=== PATIENT | male | born 1930 | race Caucasian/White ===

== ENCOUNTER 2019-11-07 13:34 | Inpatient (IN) | payer OTHER ==
[~2019-11-07] VITALS: Ht 167.6 cm; Wt 68.3 kg
[2019-11-07 13:34] VITALS: BP 121/76
[2019-11-07 14:11] LABS: BE(vivo) 0 mmol/L (-2 to +3); HCO3 24.5 mmol/L (22.0-26.0); PCO2 39.6 mmHg (35.0-45.0); PO2 69.4 mmHg (80.0-100.0); sO2 94.1 % (92.0-98.0)
[2019-11-07 14:12] LABS: ABSOLUTE NEUTROPHILS 6.9 thou/uL (1.4-8.2); BASOPHILS 0.1 % (0.0-2.0); EOSINOPHILS 0.1 % (0.0-3.0); HEMATOCRIT 27.1 % (42.0-52.0); HEMOGLOBIN 8.5 gm/dL (14.0-18.0); LYMPHOCYTES 3.1 % (24.0-44.0); MCH 33.6 pg (26.0-34.0); MCHC 31.3 g/dL (28.0-37.0); MCV 107.2 fL (80.0-100.0); MONOCYTES 2.9 % (1.0-8.0); POLYS 93.8 % (36.0-66.0); RBC 2.53 mil/uL (4.50-6.00); WBC 7.4 thou/uL (4.0-11.0)
[2019-11-07 14:28] LABS: ALBUMIN 1.4 g/dL (3.4-5.0); CALCIUM 6.1 mg/dL (8.5-10.1); DIRECT BILIRUBIN 0.1 mg/dL (<0.1-0.2); TOTAL BILIRUBIN 0.3 mg/dL (0.2-1.0); TOTAL PROTEIN 5.4 g/dL (6.4-8.2)
[2019-11-07 14:37] LABS: POTASSIUM 2.8 mmol/L (3.5-5.1)
[2019-11-07 14:39] LABS: PLATELET COUNT 131 thou/uL (150-400)
[2019-11-07] MEDS ORDERED: DIVALPROEX SOD250 M1 PO (15:06)
[2019-11-07 17:07] LABS: URINE BILIRUBIN NEGATIVE (Negative); URINE BLOOD 2+ (Negative); URINE CLARITY CLEAR; URINE COLOR YELLOW; URINE GLUCOSE-RANDOM* NEGATIVE (Negative); URINE KETONES NEGATIVE (Negative); URINE LEUKOCYTES-REFLEX NEGATIVE (Negative); URINE NITRITE-REFLEX NEGATIVE (Negative); URINE PROTEIN (DIPSTICK) 1+ (Negative); URINE SPECIFIC GRAVITY 1.025 (1.005-1.035); URINE UROBILINOGEN 0.2 E.U./dl (0.2-1.0)
[2019-11-07 17:17] LABS: CASTS None Seen /LPF (None Seen); CRYSTALS None Seen /LPF (None Seen); SQUAMOUS None Seen /LPF (0-3)
[2019-11-07 17:18] LABS: BACTERIA-REFLEX 1-9 Few /HPF (None Seen); URINE RBC 0-2 Rare /HPF (0-2); URINE WBC-REFLEX None Seen /HPF (0-5)
[2019-11-07 18:33] VITALS: BP 87/36
[2019-11-07 20:15] VITALS: BP 107/74
[2019-11-08] VITALS (8 sets, daily range): BP systolic 100–132; BP diastolic 65–95
[2019-11-08] MEDS ORDERED: SIMVASTATIN40 MG PO (00:52)
[2019-11-08] MEDS ORDERED: NAMENDA 10 MG T10 MG PO (00:53)
[2019-11-08] MEDS ORDERED: BUSPIRONE HCL10 MG PO (00:53)
[2019-11-08] MEDS ORDERED: PROSCAR 5MG TABL5 M1 PO (00:53)
[2019-11-08] MEDS ORDERED: FLOMAX0.4 MG PO (00:54)
[2019-11-08] MEDS ORDERED: TRAZODONE HCL50 MG PO (00:54)
--- NOTE | 2019-11-08 03:34 | NUR ---
Admission history and assessments completed. However unable to chart admission assessments on [employer], IT issues which IT is aware off. Careplan initiated. 11/06 COVID swab not done in ED, collected and sent to lab at 2030, results pending. New onset of Afib with RVR, currently on Amiodarone drip per protocol. Keeping SBP's >100. Rhythm remains in Afib rate 120's. High fall risks, fall precautions in place.
--- NOTE | 2019-11-08 04:00 | NUR ---
Patient increasingly more awake and getting restless. Has taken off NRB mask multiple times, attempting to pull on elias catheter and managed to disconnect ivtubing. Orders received for non violent restraints and bilateral soft wrists restraints will be applied. Amiodarone drip infusing per protocol at 16.77 ml/hr.Rhythm remains Afib rate 120's. Maintaining SBP> or equal to 100. Critical labs reported to Chiqui Martinez NP, will review for further orders.
[2019-11-08 04:12] LABS: ABSOLUTE NEUTROPHILS 8.2 thou/uL (1.4-8.2); HEMATOCRIT 41.4 % (42.0-52.0); LYMPHOCYTES 5.2 % (24.0-44.0); MCH 33.1 pg (26.0-34.0); MCHC 31.5 g/dL (28.0-37.0); MCV 105.2 fL (80.0-100.0); MONOCYTES 3.8 % (1.0-8.0); PLATELET COUNT 180 thou/uL (150-400); RBC 3.94 mil/uL (4.50-6.00); RDW 15.5 % (10.5-14.5)
[2019-11-08 04:17] LABS: ALBUMIN 1.9 g/dL (3.4-5.0); CALCIUM 7.6 mg/dL (8.5-10.1); CREATININE 2.6 mg/dL (0.7-1.3); MAGNESIUM 2.8 mg/dL (1.8-2.4); TOTAL BILIRUBIN 0.6 mg/dL (0.2-1.0); TOTAL PROTEIN 6.4 g/dL (6.4-8.2)
--- NOTE | 2019-11-08 05:51 | NUR ---
Bilateral soft wrist restraints on. Attempted to call 1st emergency contact Graciela Greene spouse, number is no longer in service. Left message with 2nd contact Aldo King [phone].
--- NOTE | 2019-11-08 08:12 | EKG ---
[facility] [place] [address] ELECTROCARDIOGRAM REPORT Name: GURINDER DUNCAN Room #: 353-P ADM IN M.R.#: [id number] Admission: 11/07/19 Attend Phys: Loc Mcdonough Discharge: Date of : [birth year] Report #: [id number] THIS REPORT FOR: cc: Claus Booth James D. DO Lundgren, Craig H. MD [facility] ~ THIS REPORT FOR: //name// [facility] ED Test Date: 2019-11-07 Test Time: 13:47:49 Pat Name: GURINDER DUNCAN Department: Room: [facility] Gender: M Client Application Support Engineer: SAPPHIRE : [id number] Requested By: Ariella Andujar Order Number: [id number] MD: Thomas Watkins Measurements Intervals Kimball Rate: 139 P: DC: QRS: 33 QRSD: 132 T: -53 QT: 283 QTc: 431 Interpretive Statements Atrial flutter with predominant 2:1 AV block Ventricular premature complex Right bundle branch block No previous ECG available for comparison Electronically Signed On 11-08-2019 8:12:41 CDT by Thomas Watkins [email or web address] <ELECTRONICALLY SIGNED> By: Thomas Watkins MD, [facility] 11/08/19 0812 1347 [id number] Thomas Watkins MD, [facility] /EPI
[2019-11-08 09:02] LABS: HCO3 23.8 mmol/L (22.0-26.0); PCO2 49.5 mmHg (35.0-45.0); PO2 108.3 mmHg (80.0-100.0); sO2 97.4 % (92.0-98.0)
--- NOTE | 2019-11-08 16:55 | NUR ---
INITIAL ASSESSMENT: SW reviewed chart and spoke with nursing and attending physician. Pt was admitted from [facility] due to respiratory failure. Pt on 15L NRB mask. Pt is in Enhanced Isolation to r/o COVID-19. Test is pending. Discussed with nursing. Pt is comfort care at this time. SW provided update to [place] post-acute liaison. DAGO is following to assist as needed.
--- NOTE | 2019-11-08 18:15 | NUR ---
RECEIVED PT'S CARE AROUND 0720; PT. ON BED; RESTING WITH EYES CLOSED; RESPONSIVE TO PAIN; AM MEDICATIONS GIVEN; SHALLOW RESPIRATION NOTICED; AFIB WITH TACHYCARDIA ON THE MONITOR; PER PHYSICIAN TRYING TO CONTACT SON OR WITH NO ANSWER; DURING THE MORNING "CONIE" A PT'S FRIEND CONTACT THE NURSE & ST. PT'S HAS NOT ACCESS TO PHONE AT THE [facility]; REQUESTED PT'S SON PHONE; FRIEND DID NOT HAVE IT AT THE [facility]; CALLED SON; ABLE TO CONTACT HIM; NOTIFIED PHYSICIAN WANTS TO TALK ABOUT PT'S HELTH & POC; PT'S SON ST. [facility] BEING OUT OF TOWN AND NOT HAVING A GOOD FRONT COUNTER CLERK, "BUT WILL KEEP CELL PHONE CLOSE TO HIM" FOR WHENEVER PHYSICIAN CALLS; DR. JACKSON NOTIFIED; RECEIVED PHONE CALL AFTER NOON FROM PT'S , , CONTACTED ; UPDATE ABOUT PT'S HEALTH ST. UNDERSTANDING; AROUND 1439 PHYSICIAN INFORMED DIP GUIDER STOVES PT'S HECTOR, SON, REQUESTED COMFORT CARE FOR PT; ORDERS ON PLACED; D/C FLUIDS & AMIODARONE; PRN MORPHINE GIVEN; PT. RESTLESS; PHYSICIAN NOTIFIED; ORDERS ON PLACED; PRN LORAZEPAM GIVEN; MONITORING; ASSESSMENT CHARGED; FOLLOWING POC; WILL PASS ON REPORT;
--- NOTE | 2019-11-08 23:53 | NUR ---
WHEN FIRST SEEING THE PT, PT WAS LYING IN A SUPINE POSITION WITH THE NON-REBREATHER MASK ON, PT APPEARED TO BE GRIMACING SO PAIN MEDICATION WAS GIVEN TO PROMOTE COMFORT. PT ALSO LOOKED AGITATED AND SQUIRMISH SO ATIVAN WAS PROVIDED WELL. PT IS NONVERBAL/NONRESPONSIVE. NO CONCERNS ARE MADE AND PT COMFORT IS PRIORITY AT THIS TIME. PT IS STILL ATTACHED TO THE MONITOR AT THIS TIME SINCE PT REMAINS IN ISOLATION. COVID PCR WAS ORDERED. WILL CONTINUE TO MONITOR FOR CHANGE IN STATUS
[2019-11-09 06:07] LABS: ABSOLUTE NEUTROPHILS 11.8 thou/uL (1.4-8.2); EOSINOPHILS 0.1 % (0.0-3.0); HEMATOCRIT 40.3 % (42.0-52.0); HEMOGLOBIN 12.5 gm/dL (14.0-18.0); LYMPHOCYTES 4.3 % (24.0-44.0); MCH 32.9 pg (26.0-34.0); MCV 105.9 fL (80.0-100.0); MONOCYTES 2.7 % (1.0-8.0); PLATELET COUNT 169 thou/uL (150-400); POLYS 92.9 % (36.0-66.0); RBC 3.81 mil/uL (4.50-6.00); RDW 16.8 % (10.5-14.5); WBC 12.7 thou/uL (4.0-11.0)
[2019-11-09 06:22] LABS: ALBUMIN 1.8 g/dL (3.4-5.0); CALCIUM 8.2 mg/dL (8.5-10.1); MAGNESIUM 2.8 mg/dL (1.8-2.4); POTASSIUM 4.5 mmol/L (3.5-5.1); TOTAL BILIRUBIN 0.4 mg/dL (0.2-1.0); TOTAL PROTEIN 7.3 g/dL (6.4-8.2)
[2019-11-09 07:41] VITALS: BP 124/60
--- NOTE | 2019-11-09 15:05 | NUR ---
DAGO reviewed chart and spoke with gunnar and attending physician. Pt remains on comfort care at this time. Pt is in Enhanced Isolation due to COVID-19. Pt's test is positive. SW provided update to [place] post-acute liaison. SW is available to assist as needed.
--- NOTE | 2019-11-09 17:55 | NUR ---
RECEIVED PT'S CARE AROUND 0715; PT. RESTING WITH EYES CLOSED; AFIB ON THE MONITOR; RESPONSE TO PAIN; PRN MEDICATIONS GIVEN; CHECK EMAR; TURNED FROM SIDE TO SIDE NEEDED; AFIB ON THE MONITOR; 120s; COMFORT CARE THROUGH THE DAY; CALLED SON & GAVE UPDATES ABOUT PT'S HEALTH; PER PT'S SON REQUEST PLEASE CALL DURING THE NIGHT & LEAVE A VOICE MAIL IF NOT ANSWERING; PLEASE GAVE UPDATES EVERY SHIFT; WILL PASS ON REPORT; ASSESSMENT CHARGED; FOLLOWING POC; MONITORING; WILL PASS ON REPORT;
--- NOTE | 2019-11-09 22:20 | NUR ---
ASSUMED CARE FOR THIS PATIENT AT 1900, AT THE BEGINNING OF THE SHIFT, PT'S SON WAS CONTACTED REGARDING PT'S CURRENT STATUS; PER PT'S SON'S REQUEST. AT THAT TIME PT'S HR WAS 110, AND WAS DECLNING STEADILY. BY 2099 PT'S HR WAS DECLINING TO MID 70s; AFTER FEW MINUTES, PT WENT INTO ASYSTOLE; THEN SHORTLY AFTER. PT WAS SEEN AT THE BEGINNING OF THE SHIFT BY RN, PT APPEARED COMFORTABLE, IT WAS NOTED THAT PT RECEIVED A FENTANYL PATCH DURING THE MORNING. SON WAS NOTIFIED, APPLICATION INTERNSHIP NOTIFIED, MANUSCRIPT READER OYSTER OPENER TONIGHT WAS NOTIFIED, ATTEMPTED TO REACH THE MD BUT WAS NOT SUCCESSFUL, MTN ALSO NOTIFIED WELL. PT SPECIFICALLY REQUESTED THAT WE DO NOT CONTACT OTHER INDIVIDUALS RELATED BECAUSE PT WISHES TO SPEAK WITH THE FAMILY MEMBERS IN THE MORNING. CONTINUING TO FOLLOW THE POST MORTEM CARE PACKAGE. ALL MEDICAL DEVICES ON THE PT AT THE TIME OF REMOVED. PT DID NOT HAVE ANY JEWERLYS OR PERSONAL ITEMS ON THE PT. PT'S SON STATED THAT THERE WERE PLANS IN PLACE FOR THIS MOMENT, FILAMENT SHAPER WILL HAVE TO COORDINATE WITH PT REGARDING THIS MATTER.
== END 2019-11-09 21:27 | DRG 177 ==
LOC: ER 13:34 → 3W 17:56 → EROBS 17:56 → 3W 19:08
PROVIDERS: Emergency Medicine; ADMIT Hospitalist; ATTEND Hospitalist
DX: U07.1 COVID-19 (principal); J69.0 Pneumonitis due to inhalation of food and vomit; J96.21 Acute and chronic respiratory failure with hypoxia; G93.40 Encephalopathy, unspecified; N17.9 Acute kidney failure, unspecified; E87.0 Hyperosmolality and hypernatremia; E86.0 Dehydration; F03.90 Unspecified dementia, unspecified severity, without behavioral disturbance, psychotic disturbance, mood disturbance, and anxiety; Z51.5 Encounter for palliative care; I48.91 Unspecified atrial fibrillation; E86.1 Hypovolemia; R91.8 Other nonspecific abnormal finding of lung field; Z66 Do not resuscitate; Z79.01 Long term (current) use of anticoagulants
CPT/HCPCS: 10879